=== PATIENT | female | born 1985 | race Caucasian/White ===

== ENCOUNTER 2021-07-05 02:28 | Emergency (ER) | payer MEDICAID ==
[~2021-07-05] VITALS: Ht 152.4 cm; Wt 74.8 kg
[2021-07-05 02:28] VITALS: BP_SYST 179
--- NOTE | 2021-07-05 02:28 | NUR ---
Patient to ER bed 4 to gown for evaluation. Side rails up. Report given to self.
--- NOTE | 2021-07-05 02:56 | NUR ---
ER Dr. Aguilera at bedside examining patient.
[2021-07-05] MEDS ORDERED: KETOROLAC TROMETHAMINE 60 MG/2 ML VIAL IM ONE (03:00)
[2021-07-05] MEDS ORDERED: ATEN-41 PO ×2 (03:01→03:17)
[2021-07-05] MEDS ORDERED: IBUP-1971 PO (03:15)
[2021-07-05] MEDS ORDERED: NEOM10SO7 RIGHT EAR (03:15)
--- NOTE | 2021-07-05 03:27 | NUR ---
Patient given written and verbal discharge instructions and verbalizes understanding. ER MD discussed with patient the results and treatment provided. Patient in stable condition. ID arm band removed. Rx of Atenolol, Neosporin solution, motrin given. Patient educated on pain management and to follow up with PMD. Pain Scale 5. Opportunity for questions provided and answered. Medication side effect fact sheet provided.
== END 2021-07-05 03:27 | disposition home or self-care (01) ==
LOC: SED 02:28
DX: H60.91 Unspecified otitis externa, right ear (principal); I10 Essential (primary) hypertension; Z79.899 Other long term (current) drug therapy
CPT/HCPCS: 96372; 99283; J1885

== ENCOUNTER 2023-09-14 20:17 | Emergency (ER) | payer OTHER, MEDICAID ==
[~2023-09-14] VITALS: Ht 144.8 cm; Wt 83.5 kg
[~2023-09-14 20:17] MED LIST: ATEN-41 PO; IBUP-1971 PO; NEOM10SO7 RIGHT EAR
[2023-09-14 20:47] VITALS: BP_SYST 157; PULSE 105; RESP 18; TEMP 98.1; O2SAT 98
[2023-09-14] MEDS ORDERED: KETOROLAC TROMETHAMINE 60 MG/2 ML VIAL IM ONE (21:45)
[2023-09-14] MEDS ORDERED: IBUP-1969 PO (21:48)
[2023-09-14] MEDS ORDERED: TRAM50TA2 PO (21:48)
[2023-09-14 22:38] VITALS: BP_SYST 130; PULSE 87; RESP 18; TEMP 98; O2SAT 98
== END 2023-09-14 22:38 | disposition home or self-care (01) ==
LOC: SED 20:17
DX: S29.012A Strain of muscle and tendon of back wall of thorax, initial encounter (principal); S01.03XA Puncture wound without foreign body of scalp, initial encounter; S89.91XA Unspecified injury of right lower leg, initial encounter; I10 Essential (primary) hypertension; Z79.899 Other long term (current) drug therapy; V89.2XXA Person injured in unspecified motor-vehicle accident, traffic, initial encounter; Y93.89 Activity, other specified; Y92.89 Other specified places as the place of occurrence of the external cause; Y99.8 Other external cause status
CPT/HCPCS: 99284; 29505; 72080; 73564; 96372; J1885